=== PATIENT | male | born 1990 | race American Indian/Alaskan Native ===

== ENCOUNTER 2017-07-09 21:46 | Emergency (ER) | payer MEDICAID, OTHER, SELFPAY ==
[2017-07-09 22:38] VITALS: BP 105/67; PULSE 75; RESP 18; TEMP 37.3; O2SAT 99
--- NOTE | 2017-07-09 23:18 | PC.NURSE ---
Pt reports onset about 2-3 days ago, started like a pimple on R calf. Pt popped and had pus like drainage but pain, swelling got worse. Pt denies fever/chills, -N/V.
[2017-07-10] MEDS: HYDROCODONE/ACET 5/325 PREPACK 1 BOTTLE MISC (01:31)
[2017-07-10] MEDS: DOXYCYCLINE HYCLATE 100 MG TABLET PO (01:31)
[2017-07-10 01:40] VITALS: BP 106/64; PULSE 64; RESP 14; O2SAT 99
--- NOTE | 2017-07-10 01:43 | PC.NURSE ---
late entry at 0130, wound cleansed with hibiclense, wrapped with kurlix and tubular gauze applied on affected site. Pt advised to keep wound clean, dry and change dressing prn. Warm pack/soak advised to promote healing.
--- NOTE | 2017-07-10 02:28 | ED_ITS ---
HPI - Skin/Abscess/Foreign Bdy General Chief complaint: Skin/Abscess/Foreign Body Stated complaint: RT LEG BUMP LOOKS INFECTED Time Seen by Provider: 07/10/17 00:00 Source: patient Mode of arrival: ambulatory Limitations: no limitations History of Present Illness HPI narrative: Patient presents to the emergency department today with a chief complaint of 3-4 days of worsening painful bump on his right lower leg with surrounding redness and swelling. He denies any known injury or history of MRSA exposure. He denies systemic symptoms such as fever or chills MD complaint: abscess/boil Onset (ago): day(s) Tetanus up to date: yes Location: RLE Severity: moderate Quality: stabbing and aching Pain Consistency: constant Relieving factors: none Exacerbating factors: none Context: none Associated symptoms: denies other symptoms Related Data Previous Rx's Medication Instructions Recorded doxycycline monohydrate 100 mg PO BID 10 Days #20 cap 07/10/17 Allergies Allergy/AdvReac Type Severity Reaction Status Date / Time No Known Drug Allergies Allergy Verified 07/09/17 22:40 Review of Systems Review of Systems All systems reviewed & are unremarkable except as noted in HPI and below Constitutional Denies chills, Denies fever(s), Denies lethargy and Denies weakness Eyes Denies change in vision, Denies eye discharge, Denies irritation and Denies loss of vision ENT Ears, Nose, Mouth, and Throat: Denies change in voice, Denies neck pain and Denies sore throat Cardiovascular Denies chest pain, Denies irregular heart rhythm, Denies lightheadedness, Denies palpitations, Denies dyspnea, Denies dyspnea on exertion and Denies orthopnea Respiratory Denies cough, Denies dyspnea, Denies dyspnea on exertion and Denies wheezing Gastrointestinal Gastrointestinal: Denies abdominal pain, Denies change in bowel habits, Denies diarrhea, Denies nausea and Denies vomiting Genitourinary Denies hematuria, Denies flank pain, Denies urinary incontinence and Denies urinary urgency Musculoskeletal Denies neck pain Integumentary/Breasts Denies pruritus, Reports erythema, Denies rash, Reports skin pain, Reports skin swelling and Reports wounds Neurologic Denies confusion, Denies loss of vision and Denies weakness Psychiatric Denies anxiety, Denies confusion, Denies depression, Denies homicidal ideation and Denies suicidal ideation Endocrine Denies palpitations Hematologic/Lymphatic Denies easy bruising Allergic/Immunologic Denies wheezing Exam Narrative Exam Narrative: Pleasant 27-year-old male in mild distress, clutching his right leg Initial Vital Signs Initial Vital Signs: Vital Signs Temperature 99.1 F 07/09/17 22:38 Pulse Rate 75 07/09/17 22:38 Respiratory Rate 18 07/09/17 22:38 Blood Pressure 105/67 07/09/17 22:38 Pulse Oximetry 99 07/09/17 22:38 Const General: cooperative and well developed Nutritional Appearance: well nourished Orientation: alert, awake, oriented x3 and not confused HENDC Head: normocephalic and atraumatic Ears: external ears normal and TM's normal bilaterally Nose: external nose normal and No nasal discharge Face and sinus: sinuses nontender, face symmetric, no sinus tenderness and No dry mucous membranes Mouth: oral mucosae normal and moist mucous membranes Teeth and gingiva: dentition normal Throat: tonsils normal and uvula midline Resp Effort & Inspection: normal respiratory effort, able to speak in complete sentences, no respiratory distress and no use of accessory muscles Auscultation: clear to auscultation bilaterally, no rales, no rhonchi and no wheezes GI Inspection: non-distended Palpation: soft, no hepatosplenomegaly, No guarding, No pulsatile mass and No tender Auscultation: normal bowel sounds Back/Spine/Pelvis Back: No CVA tenderness Cervical Spine: cervical ROM normal and No pain with cervical ROM Thoracic/Lumbar Spine: thoracic and lumbar spine normal to inspection Skin General: No lichenification, No mottling, No petechiae and warm Trauma: no lacerations Neuro General: alert, oriented x3, gait normal and no focal motor deficits Speech: speech normal Extrem Right lower extremity: edema and lower leg (2 cm x 2 cm fluctuant abscess surrounded by cellulitis) Details: erythema, tenderness and localized swelling Procedures Abscess I/D Site: lower extremity Side (if applicable): right Local Anesthetic: lidocaine 1% and with epi Technique: incised with #11 blade Amount of fluid expressed (mL): 5 Irrigation: No Packing used?: none Complications: pain Course Orders Ordered: Discontinued Medications Hydrocodone Bitart/Acetaminophen (Vicodin Prepack) 1 bottle MISC SEEINSTR ONE Stop: 07/10/17 01:22 Last Admin: 07/10/17 01:31 Dose: 1 bottle Doxycycline Hyclate (Vibramycin) 100 mg PO NOW ONE Stop: 07/10/17 01:22 Last Admin: 07/10/17 01:31 Dose: 100 mg Ketorolac Tromethamine (Toradol) 60 mg IM NOW ONE Stop: 07/10/17 00:39 Last Admin: 07/10/17 01:12 Dose: Vital Signs - 8 hr 07/09/17 22:38 07/10/17 01:40 Temperature 99.1 F Pulse Rate 75 64 Respiratory Rate 18 14 Blood Pressure 105/67 106/64 Pulse Oximetry 99 99 Discharge Plan Departure Patient Disposition: Home, Self-Care Clinical Impression: Cellulitis and abscess of right leg Discharge Date/Time: 07/10/17 01:40 Interventions: ED Discharge Assessment Last Done: 07/10/17 01:40 Instructions: DI for Cellulitis -- Adult, DI for Skin Abscess Activity Restrictions/Additional Instructions: *You have been diagnosed with [ abscess and cellulitis of right lower extremity ] *What to do: *Take medications as directed, your prescription has been electronically transmitted to [facility] in [place] at your request *Follow up with your primary care provider in 2-3 days *Return to ER if you should have any new, worsening or concerning symptoms Prescriptions: New doxycycline monohydrate 100 mg capsule 100 mg PO BID 10 Days Qty: 20 RF: 0
== END 2017-07-10 01:40 | disposition home or self-care (01) ==
PROVIDERS: Emergency Provider Emergency Medicine; Family Provider Family Medicine; PCP Family Medicine
DX: L03.115 Cellulitis of right lower limb (principal); L02.415 Cutaneous abscess of right lower limb
CPT/HCPCS: 96372; 99283

== ENCOUNTER 2021-12-14 21:36 | Emergency (ER) | payer MEDICAID, OTHER, SELFPAY ==
[2021-12-14 21:40] VITALS: BP 120/61; PULSE 74; RESP 16; TEMP 36.6; O2SAT 99; BMI 23.6
--- NOTE | 2021-12-14 22:00 | PC.NURSE ---
pt states he does not know why he is here Luanne told him to come in, pt aaox3 gait steady speach clear
--- NOTE | 2021-12-14 22:21 | PC.NURSE ---
pt spoke with his mother who he thought was working [employer], she is not working so he would like to be dc to his mother if that is possible. Dr Foote informed
--- NOTE | 2021-12-14 22:27 | ED_ITS ---
HPI - Overdose General Chief Complaint: Toxicology Problem Stated Complaint: Detox Time Seen by Provider: 12/14/21 22:22 Source: patient Mode of arrival: EMS History of Present Illness HPI Narrative: Patient is a 31-year-old male with history of substance abuse. He smokes fentanyl and methamphetamine he has actually been accepted to detox tomorrow. He was talking to a police dispatcher he wanted to get sober the police dispatcher help him find a bed at detox then he was instructed to come to the emergency department to stay for safety keeping. He has no thoughts of harming himself or hurting anyone else. He is excited to go to detox tomorrow. He does have a safe place to stay with his mom was actually on her way to pick him up. He has no other symptoms no chest pain shortness of breath or fever. Related Data Allergies Allergy/AdvReac Type Severity Reaction Status Date / Time No Known Drug Allergies Allergy Verified 07/09/17 22:40 Review of Systems Review of Systems Narrative: GENERAL: Denies chills,fever HEENT: Denies throat pain RESPIRATORY: Denies dyspnea, cough, wheezing CARDIOVASCULAR: Denies chest pain, palpitations GASTROINTESTINAL: Denies nausea, vomiting MUSCULOSKELETAL: Denies extremity pain, injury SKIN: No rash, no laceration, no pruritus NEUROLOGIC: Denies weakness, dizziness, headache, numbness 8 point review of systems is negative except for those stated above and HPI Patient History Substance Use Type: opiates and methamphetamine Exam Initial Vital Signs Initial Vital Signs: Vital Signs Temperature 98 F 12/14/21 21:40 Pulse Rate 74 12/14/21 21:40 Respiratory Rate 16 12/14/21 21:40 Blood Pressure 120/61 12/14/21 21:40 Pulse Oximetry 99 12/14/21 21:40 Oxygen Delivery Method 12/14/21 21:40 GENERAL: Alert well-appearing 31-year-old male and in no acute distress. CARDIOVASCULAR: Regular rate and rhythm without murmurs, rubs or gallops. RESPIRATORY: Breath sounds equal bilaterally, no wheezes rales or rhonchi. EXTREMITIES: Normal range of motion, no clubbing or edema. Neurovascularly intact NEUROLOGICAL: Alert and oriented x4. SKIN: Warm, dry, no laceration, no petechiae, no rashes or lesions. Course Orders Ordered: Discontinued Medications Ondansetron HCl (Ondansetron 4 Mg Odt Prepack) 1 bottle MISC SEEINSTR ONE Stop: 12/14/21 22:32 Last Admin: 12/14/21 22:35 Dose: 1 bottle Documented By: ALEXANDER Vital Signs Vital signs: Vital Signs - 8 hr 12/14/21 21:40 Temperature 98 F Pulse Rate 74 Respiratory Rate 16 Blood Pressure 120/61 Pulse Oximetry 99 Oxygen Delivery Method Room Air MDM - Overdose MDM Narrative Medical decision making narrative: Patient did not overdose. Was not given Narcan. He is awake alert appropriate he has no complaints his vitals are stable. He has a safe place to stay tonight and he has been accepted to detox for tomorrow. At this time he no longer requires emergency department care. Naloxone at Discharge Patient criteria for naloxone at discharge: Other reason Discharge Plan Departure Patient Disposition: Home Clinical Impression: Polysubstance abuse Instructions: DI for Substance Use Disorder Activity Restrictions/Additional Instructions: *You have been diagnosed with substance abuse *What to do: Go to detox tomorrow as planned. You got this *Continue to take medications as directed Zofran 4 mg every 8 hours if needed for nausea or vomiting *Follow up with your primary care provider in 2-3 days or call [phone] *Return to ER if you should have increasing vomiting diarrhea or any new, worsening or concerning symptoms Visit Report Forms: Patient Portal/API
[2021-12-14] MEDS: ONDANSETRON 4 MG ODT PREPACK 1 BOTTLE MISC (22:35)
== END 2021-12-14 22:38 | disposition home or self-care (01) ==
PROVIDERS: Emergency Provider Emergency Medicine
DX: F19.10 Other psychoactive substance abuse, uncomplicated (principal)
CPT/HCPCS: 99282